=== PATIENT | female | born 1950 | race African-American/Black ===

== ENCOUNTER 2016-10-14 14:06 | Emergency (ER) | payer MEDICARE, BC ==
[~2016-10-14] VITALS: Ht 157.5 cm; Wt 79.4 kg
[2016-10-14] MEDS ORDERED: VERA24TASA PO (14:28)
[2016-10-14] MEDS ORDERED: CRES10TA32 PO (14:28)
[2016-10-14] MEDS ORDERED: DOXY100C PO (14:28)
[2016-10-14] MEDS ORDERED: TRIAMTERENE-HCTZ PO (14:28)
[2016-10-14] MEDS ORDERED: GUAISYP5 PO (15:44)
[2016-10-14] MEDS ORDERED: ZITHTAB PO (15:44)
[2016-10-14] MEDS ORDERED: BENZ200C44 PO (15:44)
--- NOTE | 2016-10-14 15:55 | REP ---
CHEST, TWO VIEWS: HISTORY: Two views of the chest are performed and compared to prior study of 06/22/2016. Mild bibasilar fibroatelectatic changes stable. There is no acute infiltrate or pulmonary edema. Heart appears to be upper limits of normal in size. There is calcification and tortuosity of the thoracic aorta. Mediastinal silhouette is unchanged. There are degenerative changes of the spine. IMPRESSION: Stable chronic findings without evidence of acute infiltrate. Signed by Heriberto Ritter MD 10/14/2016 08:12 P
[2016-10-14 15:57] VITALS: BP 115/78
== END 2016-10-14 16:04 | disposition home or self-care (01) ==
LOC: M ED 14:45
DX: J44.0 Chronic obstructive pulmonary disease with (acute) lower respiratory infection (principal); I10 Essential (primary) hypertension; Z79.899 Other long term (current) drug therapy; Z91.030 Bee allergy status; Z99.81 Dependence on supplemental oxygen; Z87.891 Personal history of nicotine dependence